=== PATIENT | female | born 1950 | race Caucasian/White ===

== ENCOUNTER 2024-11-20 12:07 | Outpatient (CLI) | payer MEDICARE, OTHER ==
--- NOTE | 2024-11-21 09:59 | RADIOLOGY REPORT ---
PROCEDURE: MR MRI LUMBAR SPINE INDICATION: SPONDYLOSIS W/O MYELOPATHY OR RADICULOPATHY, LUMBA Exam Date: 11/20/2024 12:16 PM COMPARISON: None TECHNIQUE: MRI lumbar spine without intravenous contrast. FINDINGS: Grade 1 anterolisthesis of L2 on L3. There are degenerative endplate changes including modic endpla te changes with anterior and lateral osteophytes throughout the lumbar spine. The visualized distal s mundo cord and conus medullaris are within normal limits. The conus medullaris appears to terminate within normal limits. The visualized retroperitoneal and paraspinal soft tissues are unremarkable. The following axial levels are detailed below: T12-L1: Unremarkable. L1-L2: There is a mild circumferential disc bulge. No significant central canal or neuroforaminal s tenosis. L2-L3: There is a moderate circumferential disc bulge complicated by facet arthropathy associated w ith mild to moderate bilateral neuroforaminal stenosis. No significant central canal stenosis. L3-L4: There is a moderate circumferential disc bulge complicated by facet arthropathy associated w ith mild to moderate bilateral neuroforaminal stenosis. No significant central canal stenosis. L4-L5: There is a severe circumferential disc bulge complicated by facet arthropathy narrowing the central canal to 9 mm with associated moderate to severe left neuroforaminal stenosis. L5-S1: There is a mild circumferential disc bulge. No significant central canal or neuroforaminal st enosis. IMPRESSION: 1. Multilevel degenerative disease. Mild central canal stenosis L4-Neural foraminal stenosis as abov e. HS:Y
== END 2024-11-20 23:59 | disposition home or self-care (01) ==
LOC: MRI02 12:07
PROVIDERS: ATTEND Anesthesiology
DX: M51.16 Intervertebral disc disorders with radiculopathy, lumbar region (principal); M47.816 Spondylosis without myelopathy or radiculopathy, lumbar region; M47.26 Other spondylosis with radiculopathy, lumbar region; M43.16 Spondylolisthesis, lumbar region; M48.061 Spinal stenosis, lumbar region without neurogenic claudication
CPT/HCPCS: 72148